=== PATIENT | female | born 1965 | race Caucasian/White ===

== ENCOUNTER 2020-05-20 09:28 | Outpatient (CLI) | payer OTHER, SELFPAY ==
--- NOTE | ~2020-05-20 | MM_ITS ---
EXAMINATION: MM screening [facility] BI w jayme HISTORY: Screening mammogram TECHNIQUE: Craniocaudal and mediolateral oblique 3-D tomosynthesis images were obtained and synthetic 2-D images were generated. CAD analysis was submitted and interpreted. COMPARISON: 03/31/2019, 03/05/2018, 02/07/2017 BREAST PARENCHYMAL COMPOSITION: There are scattered areas of fibroglandular density. FINDINGS: There is no evidence of suspicious mass, calcification, or architectural distortion to sugg est malignancy in either breast. There has been no suspicious interval change. IMPRESSION: 1. No mammographic evidence of malignancy. 2. Recommend routine screening mammography in one year. BI-RADS Category 1: Negative Reviewed, dictated and finalized at location A.
== END 2020-05-20 09:29 | disposition home or self-care (01) ==
LOC: ANHIMG 09:31
PROVIDERS: PCP Internal Medicine; Visit Provider Obstetrics & Gynecology
DX: Z12.31 Encounter for screening mammogram for malignant neoplasm of breast (principal)
CPT/HCPCS: 77063; 77067

== ENCOUNTER 2021-02-08 14:34 | Outpatient (CLI) | payer OTHER, SELFPAY ==
--- NOTE | ~2021-02-08 | US_ITS ---
EXAMINATION: US venous doppler [facility] EXAM DATE: 02/08/2021 15:04 INDICATION: Left calf pain. TECHNIQUE: Multiple grayscale, color flow and Doppler images of the left lower extremity deep venous system were obtained and reviewed. There is no prior study for comparison. FINDINGS: The left common femoral, femoral and profunda veins demonstrate normal color flow, respirat ory variation, augmentation and compressibility. Compressibility, color flow confirmed within the le ft popliteal, posterior tibial, peroneal, and greater saphenous veins. IMPRESSION: 1. No left lower extremity deep venous thrombosis. Reviewed, dictated and finalized at location A.
== END 2021-02-08 14:35 | disposition home or self-care (01) ==
LOC: ANHIMG 14:39
PROVIDERS: PCP Internal Medicine; Visit Provider Nurse Practitioner Family
DX: M79.662 Pain in left lower leg (principal); M79.652 Pain in left thigh
CPT/HCPCS: 93971

== ENCOUNTER 2021-06-16 07:17 | Outpatient (CLI) | payer OTHER, SELFPAY ==
--- NOTE | ~2021-06-16 | MM_ITS ---
EXAMINATION: MM screening [facility] BI w jayme HISTORY: Screening mammogram TECHNIQUE: Craniocaudal and mediolateral oblique 3-D tomosynthesis images were obtained and synthetic 2-D images were generated. CAD analysis was submitted and interpreted. COMPARISON: 05/20/2020, 04/17/2019 and 03/05/2018 bilateral digital screening mammogram examinations BREAST PARENCHYMAL COMPOSITION: There are scattered areas of fibroglandular density. FINDINGS: There is no evidence of suspicious mass, calcification, or architectural distortion to sugg est malignancy in either breast. There has been no suspicious interval change. IMPRESSION: 1. No mammographic evidence of malignancy. 2. Recommend routine screening mammography in one year. BI-RADS Category 1: Negative Reviewed, dictated and finalized at location A.
== END 2021-06-16 07:18 | disposition home or self-care (01) ==
LOC: ANHIMG 07:19
PROVIDERS: PCP Internal Medicine; Visit Provider Obstetrics & Gynecology
DX: Z12.31 Encounter for screening mammogram for malignant neoplasm of breast (principal)
CPT/HCPCS: 77063; 77067

== ENCOUNTER 2022-09-07 07:34 | Outpatient (CLI) | payer OTHER, SELFPAY ==
--- NOTE | ~2022-09-07 | MM_ITS ---
EXAMINATION: MM screening [facility] BI w jayme HISTORY: Screening TECHNIQUE: Craniocaudal and mediolateral oblique 3-D tomosynthesis images were obtained and synthetic 2-D images were generated. CAD analysis was submitted and interpreted. COMPARISON: Comparison to multiple prior studies sequentially, with oldest reviewed study dated 12/2015. BREAST PARENCHYMAL COMPOSITION: There are scattered areas of fibroglandular density. FINDINGS: There is no evidence of suspicious mass, calcification, or architectural distortion to sugg est malignancy in either breast. There has been no suspicious interval change. IMPRESSION: 1. No mammographic evidence of malignancy. 2. Recommend routine screening mammography in one year. BI-RADS Category 1: Negative Reviewed, dictated and finalized at location B. NTORY CONTROL CLERK
== END 2022-09-07 07:35 | disposition home or self-care (01) ==
LOC: ANHIMG 07:35
PROVIDERS: PCP Internal Medicine; Visit Provider Obstetrics & Gynecology
DX: Z12.31 Encounter for screening mammogram for malignant neoplasm of breast (principal)
CPT/HCPCS: 77063; 77067

== ENCOUNTER 2023-10-28 08:28 | Outpatient (CLI) | payer OTHER, SELFPAY ==
--- NOTE | ~2023-10-28 | MM_ITS ---
EXAMINATION: MM screening [facility] BI w jayme HISTORY: Screening TECHNIQUE: Craniocaudal and mediolateral oblique 3-D tomosynthesis images were obtained and synthetic 2-D images were generated. CAD analysis was submitted and interpreted. COMPARISON: No prior mammogram is available for comparison at this institution. BREAST PARENCHYMAL COMPOSITION: There are scattered areas of fibroglandular density. FINDINGS: There is no evidence of suspicious mass, calcification, or architectural distortion to sugg est malignancy in either breast. There has been no suspicious interval change. IMPRESSION: 1. No mammographic evidence of malignancy. 2. Recommend routine screening mammography in one year. BI-RADS Category 1: Negative Reviewed, dictated and finalized at location A. S MGR
== END 2023-10-28 08:29 | disposition home or self-care (01) ==
LOC: ANHIMG 08:28
PROVIDERS: PCP Internal Medicine; Visit Provider Obstetrics & Gynecology
DX: Z12.31 Encounter for screening mammogram for malignant neoplasm of breast (principal)
CPT/HCPCS: 77063; 77067

== ENCOUNTER 2025-01-04 08:41 | Outpatient (CLI) | payer OTHER, SELFPAY ==
--- NOTE | ~2025-01-04 | MM_ITS ---
EXAMINATION: MM screening [facility] BI w jayme HISTORY: Screening TECHNIQUE: Craniocaudal and mediolateral oblique 3-D tomosynthesis images were obtained and synthetic 2-D images were generated. CAD analysis was submitted and interpreted. COMPARISON: Comparison to multiple prior studies sequentially, with oldest reviewed study dated 03/2018. BREAST PARENCHYMAL COMPOSITION: Not dense: There are scattered areas of fibroglandular density. FINDINGS: There is no evidence of suspicious mass, calcification, or architectural distortion to sugg est malignancy in either breast. There has been no suspicious interval change. IMPRESSION: 1. No mammographic evidence of malignancy. 2. Recommend routine screening mammography in one year. BI-RADS Category 1: Negative Reviewed, dictated and finalized at location A.
--- OUTSIDE RECORDS SUMMARY | 2025-01-04 08:55 | XMS_ITS | Encounter Summary ---
Author Organization [facility] Address [facility] [place] [address] Care Team Providers Care Fulfillment Representative Name Role Phone Tony Peters MD Primary Care Provider [phone] Encounter Details Date Type Department Care Team (Late st Contact Info) Description 06/28/2024 [employer] Message Enc [facility], [address] [address] Mychart, [facility] Provider Reschedule Social History Tobacco Use Types Packs/Day Years Used Date Smoking Tobacco: Never Passive Smoke Exposure: Never Smokeless Tobacco: Never Alcohol Use Standard Drinks/Week Comments Yes 2 (1 standard drink = 0.6 oz pur e alcohol) Occasionally AUDIT-C Answer Date Recorded Frequency of Alcohol Consumption Monthly or less 06/08/2019 Average Number of Drinks 1 or 2 019 Frequency of Binge Drinking Never 05/30 PHQ-2 Answer Date Recorded Patient Health Questionnaire-2 Score 0 06/22/2024 Comments No Sex and Gender Information Value Date Recorded Sex Assigned at Not on file Legal Sex Female 7:58 AM CDT Gender Identity Not on file Sexual Orientation Not on file documented as of this encounter Plan of Treatment Not on file documented as of this encounter Visit Diagnoses Not on filedocumented in this encounter Additional Health Concerns Assessment Noted Time PHQ-9 Depression Total Score: 2 09/13/ 20 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
--- OUTSIDE RECORDS SUMMARY | 2025-01-04 08:55 | XMS_ITS | Clinical Summary ---
Author Organization [facility] Address [facility] [place] [address] Care Team Providers Care Manufacturing Technology Analyst Name Role Phone Tony Peters MD Primary Care Provider [phone] Allergies No known active allergies Medications LORazepam (ATIVAN) 0.5 MG tabletIndication s:Fear of flying Take one tablet by mouth 30-60 minutes before flight 10 tablet 12/08/2023 Active Multiple Vitamins-Mineral s (CENTRUM SILVER 50+WOMEN OR) 09/29/2022 Active omeprazole (PRILOSEC) 20 MG capsuleIndicatio ns:Esophageal stricture TAKE 1 CAPSULE BY MOUTH EVERY MORNING WITH FOOD 90 capsule 1 07/29/2024 Active naltrexone (DEPADE) 50 MG tabletIndication s: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 30 tablet 07/30/2024 Active buPROPion XL (WELLBUTRIN XL) 150 MG 24 hr tabletIndication s:Class 3 drug-induced obesity with serious comorbidity and body mass index (BMI) of 45.0 to 49.9 in adult ([facility]),Reacti ve depression (situational) Take 1 tablet (150 mg total) by mouth every morning. 30 tablet 1 08/19/2024 Active metFORMIN ER (GLUCOPHAGE-XR) 500 MG 24 hr tabletIndication s:Class 3 drug-induced obesity with serious comorbidity and body mass index (BMI) of 45.0 to 49.9 in adult ([facility]),Predia betes Take 1 tablet (500 mg total) by mouth daily with breakfast. 90 tablet 09/13/2024 Active valACYclovir (VALTREX) 1 g tabletIndication s:Cold sore TAKE 2 TABLETS BY MOUTH TWICE DAILY AT ONSET OF COLD SORES 20 tablet 2 11/05/2024 Active Active Problems Problem Noted Date Diagnosed Date Class 3 severe obesity due t o excess calories with serious comorbidity and body mass index (BMI) of 45.0 to 49.9 in adult 06/18/2024 UTI (urinary tract infection) 07/11/2022 Left thigh pain 02/13/2021 Pain of left calf 02/13/2021 Left knee pain, unspecified chronicity Abdominal pain 09/13/2020 Enlarged uterus 09/13/2020 Irregular periods 09/13/2020 Esophageal stricture 06/08/2019 Reactive depression (situational) 06/08/2019 Resolved Problems Problem Noted Date Diagnosed Date Resolved Date Hypertension 06/18/2024 Overview (06/18/2024): When Immunizations Name Administration Dates Next Due Abrysvo Respiratory Syncytia l Virus (RSV) 0.5 mL, PF 07/22/2023 Afluria 36 MONTHS+ (Prefille d Syringe IIV4) 07/26/2019 Fluzone (IIV3, Trivalent, 0. 5 ML Prefilled Syringe) 06/30/2024 Influenza Adult (Generic) 07/22/2023,03/2022,07/14/2020,2017 PFIZER COVID-19 (ORIGINAL FORMULATION, PURPLE CAP) mRNA, LNP-S, PF, 30 MCG/0.3 ML DOSE 07/13/2021,01/01/2021,12/10/2020 PFIZER COVID-19 BIVALENT (12 +) mRNA, LNP-S, PF, 30 MCG/0.3 ML DOSE 06/25/2022 Shingrix 09/07/2021,07/06/2021 Tdap (Generic) 04/20/2022 Tdap (Historical Only-select from [employer] glass) 06/08/2019 Family History Medical History Relation Comments Coronary artery disease Brother Heart Disease Brother Hypertension Brother [place] Brother Diabetes Mother Heart Disease Mother Relation Status Comments Brother Alive Father Alive Mother Alive Sister Alive Social History Tobacco Use Types Packs/Day Years [...] on file Sexual Orientation Not on file Last Filed Vital Signs Vital Sign Reading Time Taken Comments Blood Pressure 132/80 08/20/2024 10:56 AM MAINTENANCE ENGINEER Pulse 81 08/20/2024 10:56 AM MAINTENANCE ENGINEER Temperature 37 C (98.6 F) 06/22/2024 1:26 PM CDT Respiratory Rate 12 06/22/2024 1:26 PM CDT Oxygen Saturation 95% 08/20/2024 10: 56 AM MAINTENANCE ENGINEER Inhaled Oxygen Concentration - - Weight 115.6 kg (254 lb 14.4 oz) 2023 10:56 AM MAINTENANCE ENGINEER Height 157.5 cm (5' 2 ) 08/20/2024 10:5 6 AM MAINTENANCE ENGINEER Body Mass Index 46.62 08/20/2024 10:56 AM MAINTENANCE ENGINEER Plan of Treatment Health Maintenance Due Date Last Done Comments Cervical Cancer Screening Pap Smear (Age 30 to 64) Every 3 Years 1963 Cervical Cancer Screening Pap with HPV Testing (Age 30 to 64) Every 5 Years 1993 COVID-19 Vaccine ( season) 2024 07/22/2023, 06/25/2022, 07/13/2021, Additional history exists PHQ-2 (Physician [place]) 09/29/2024 06/22/2024 Colorectal Cancer Screening Colonoscopy (10 Years) 03/10/2025 03/10/2015 Annual Physical 06/22/2025 06/22/2024, 06/29, 06/25/2022 Cervical Cancer Screening with HPV 06/30/2025 Postponed from 1993 (Going to Outside Clinic) Mammogram Screening 10/28/2025 10/28/2023, 09/07/2022, 06/16/2021, Additional history exists DTaP, Tdap and Td Vaccines (3 - Td or Tdap) 04/20/2032 04/20/2022, 06/08/2019 Zoster Vaccines Completed 09/07/2021, 07/06/2021 Hepatitis C Completed 07/06/2022 RSV Immunization or 60+ Years Completed 07/22/2023 Meningococcal B Vaccine Aged Out No l onger eligible based on patient's age to complete this topic Meningococcal Vaccine Aged Out No willy willi eligible based on patient's age to complete this topic Pneumococcal Vaccine: Pediatrics (0 to 5 Years) and At-Risk Patients (6 to 64 Years) Aged Out No longer eligible based on patient's age to complete this topic RSV Immunizations Under 20 Months Aged Out No longer eligible based on patient's age to complete this topic Procedures Procedure Name Priority Date/Time Associated Diagnosis Comments MAMMOGRAM GENERIC (SCAN ORDER) 10/28/2023 HEPATITIS C ANTIBODY W/RFX TO HCV RNA Routine 07/06/2022 8:58 AM CDT Encounter for hepatitis C screening test for low risk patient COLONOSCOPY GENERIC (SCAN ORDER) 03/10/2015 from Last 3 Months or Most Recently Relevant to Health Maintenance Results * MAMMOGRAM GENERIC (SCAN ORDER) (10/28/2023) Anatomical Region Laterality Modality Other 10/28/2023 [facility] Scanned SCANNING Final Resu lt * HEPATITIS C ANTIBODY W/RFX TO HCV RNA ([facility] ONLY) (07/06/2022 8:58 AM CDT) HEPATITIS C AB <0.1 0.0 - 0.9 s/co ratio [facility] 1 INTERPRETATION Comment [facility] 1 Comment: Negative Not infected with HCV, unless recent infection is suspected or other evidence exists to indicate HCV infection. 07/06/2022 8:58 AM CDT 07/06/2022 Narrative [facility] - 07/07/2022 8:08 AM CDT Performed at: 01 - [facility] [address] [id number] Locomotive Crane Operator: Mason Vu PhD, Phone: [phone] us Tony Peters MD LABORATORY Final Result [facility] [address] [place] [address] [facility] 1 * COLONOSCOPY GENERIC (03/10/2015) 03/10/2015 Narrative 03/10/2015 Ordered by an unspecified provider. us Documents Scanned SCANNING Final Result from Last 3 Months or Most Recently Relevant to Health Maintenance Insurance [facility] Care Teams Manufacturing Technology Analyst Relationship Specialty Start Date End Date Tony Peters MD [address] [place] [id number] PCP - General INTERNAL MEDICINE 07/16/23
== END 2025-01-04 08:42 | disposition home or self-care (01) ==
LOC: ANHIMG 08:43
PROVIDERS: PCP Internal Medicine; Visit Provider Obstetrics & Gynecology
DX: Z12.31 Encounter for screening mammogram for malignant neoplasm of breast (principal)
CPT/HCPCS: 77063; 77067